=== PATIENT | female | born 1930 | race Caucasian/White ===

== ENCOUNTER → 2016-07-02 | Outpatient (CLI) | payer MEDICARE, BC ==
[~2016-07-02] MED LIST: ALEVE LIQCAPS; AMARYL; ANTIVERT 25MG25 MG PO; ATENOLOL25 MG PO; COZAAR100 MG PO; FLONASE NASAL S16 GM NS; FORTAMET500 MG PO; GLUCOPHAGE XR500 M1 PO; HCTZ; MAG-OX 400400 MG/TAB PO; MEVACOR20 MG PO; MOMETASONE FURO30 M1 TP; MOTRIN 800800 MG/TAB PO; MULTI VITAMINS1 TAB PO; MYLICON 8080 MG/TAB. PO; NORCO 325 MG-51 TAB PO; NORVASC2.5 MG PO; PRILOSEC 20MG20 MG PO; TRIANEX0.05% TOP; VITAMIN D32000 IU PO; ZOFRAN 4MG T4 MG/TAB PO; [UNRECOGNIZED DRUG - OTHER]
[2016-07-02 17:41] LABS: BASO % 0.4 % (0.0-2.0); EOS # 0.2 (0.0-0.7); EOS % 3.1 % (0-4.0); GRAN # 3.1 (1.4-6.5); GRAN % 64.8 % (42.2-75.2); LYMPH # 1.1 (1.2-3.4); LYMPH % 22.2 % (20.0-51.0); MEAN CELL VOLUME 87 fl (80.0-100.0); MEAN CORPUSCULAR HGB CONC 35 g/dl (33.0-37.0); MEAN PLATELET VOLUME 11.3 fl (7.4-10.4); MONO # 0.4 (0.1-0.6); MONO % 9.1 % (1.7-9.3); PLATELET COUNT 186 K/mm3 (130-400); RED BLOOD COUNT 3.63 M/mm3 (4.10-5.30); WHITE BLOOD COUNT 4.8 K/mm3 (4.8-10.8)
[2016-07-02 17:43] LABS: HEMATOCRIT 31.6 % (37.0-47.0); HEMOGLOBIN 10.9 g/dl (12.5-16.0); MEAN CORPUSCULAR HEMOGLOBIN 30 pg (27.0-31.0)
[2016-07-02 17:47] LABS: CALCIUM 9.3 mg/dL (8.4-10.2); CREATININE, serum 1.16 mg/dL (0.52-1.25); MAGNESIUM 1.6 mg/dL (1.6-2.3); POTASSIUM 4.9 mmol/L (3.4-5.0)
== END ==
LOC: ZCOL.LAB 17:20
PROVIDERS: Nurse Practitioner Primary Care
DX: E87.1 Hypo-osmolality and hyponatremia (principal); N39.0 Urinary tract infection, site not specified; R53.83 Other fatigue; E83.42 Hypomagnesemia

== ENCOUNTER → 2016-07-02 | Outpatient (CLI) | payer MEDICARE, BC | LOC: ZCOL.LAB 16:44 | DX: Z53.9 Procedure and treatment not carried out, unspecified reason (principal) ==

== ENCOUNTER → 2016-07-08 | Outpatient (CLI) | payer MEDICARE, BC ==
[2016-07-08 17:31] LABS: CALCIUM 9.3 mg/dL (8.4-10.2); CREATININE, serum 1.03 mg/dL (0.52-1.25); POTASSIUM 5.1 mmol/L (3.4-5.0)
== END ==
LOC: ZCOL.LAB 17:28
PROVIDERS: Nurse Practitioner Primary Care
DX: Z02.89 Encounter for other administrative examinations (principal)

== ENCOUNTER → 2017-04-25 | Outpatient (CLI) | payer MEDICARE, BC ==
[2017-04-25 15:30] LABS: BASO % 0.5 % (0.0-2.0); EOS % 0.3 % (0-4.0); GRAN % 84.3 % (42.2-75.2); HEMATOCRIT 37.9 % (37.0-47.0); HEMOGLOBIN 12.3 g/dl (12.5-16.0); LYMPH # 0.6 (1.2-3.4); LYMPH % 9.3 % (20.0-51.0); MEAN CELL VOLUME 88 fl (80.0-100.0); MEAN CORPUSCULAR HEMOGLOBIN 29 pg (27.0-31.0); MEAN CORPUSCULAR HGB CONC 33 g/dl (33.0-37.0); MEAN PLATELET VOLUME 11.7 fl (7.4-10.4); MONO # 0.3 (0.1-0.6); MONO % 5.3 % (1.7-9.3); PLATELET COUNT 179 K/mm3 (130-400); RED BLOOD COUNT 4.29 M/mm3 (4.10-5.30)
[2017-04-25 15:37] LABS: CALCIUM 9.8 mg/dL (8.4-10.2); CREATININE, serum 1.17 mg/dL (0.52-1.25); POTASSIUM 4.9 mmol/L (3.4-5.0)
== END ==
LOC: ZCOL.LAB 15:25
PROVIDERS: Nurse Practitioner Family
DX: E87.1 Hypo-osmolality and hyponatremia (principal); H81.10 Benign paroxysmal vertigo, unspecified ear; E11.59 Type 2 diabetes mellitus with other circulatory complications; R11.0 Nausea

== ENCOUNTER 2019-12-29 17:54 | Observation (INO) | payer MEDICARE, BC ==
[~2019-12-29] VITALS: Ht 157.5 cm; Wt 59.3 kg
[~2019-12-29 17:54] MED LIST changes: +MASON NATURAL2000 IU PO; -VITAMIN D32000 IU PO
[2019-12-29 18:22] LABS: BASO % 0.6 % (0.0-2.0); EOS # 0.1 (0.0-0.7); EOS % 1.3 % (0-4.0); GRAN # 4.1 (1.4-6.5); GRAN % 63.7 % (42.2-75.2); HEMOGLOBIN 12.2 g/dl (12.5-16.0); LYMPH # 1.5 (1.2-3.4); LYMPH % 23.7 % (20.0-51.0); MEAN CELL VOLUME 88 fl (80.0-100.0); MEAN CORPUSCULAR HEMOGLOBIN 29 pg (27.0-31.0); MEAN CORPUSCULAR HGB CONC 33 g/dl (33.0-37.0); MONO # 0.6 (0.1-0.6); MONO % 9.6 % (1.7-9.3); PLATELET COUNT 212 K/mm3 (130-400); RED BLOOD COUNT 4.15 M/mm3 (4.10-5.30); REDCELL DISTRIBUTION WIDTH-CV 13.2 % (11.5-14.5)
[2019-12-29 18:23] LABS: HEMATOCRIT 36.7 % (37.0-47.0)
[2019-12-29 18:28] LABS: INR 0.9 (0.8-3.0); PROTHROMBIN TIME 10.5 SECONDS (9.7-12.8)
[2019-12-29 18:36] LABS: ALANINE AMINOTRANSFERASE 16 U/L (4-34); ALBUMIN 4.5 gm/dL (3.5-5.0); ALKALINE PHOSPHATASE 109 U/L (50-136); ANION GAP 11 mmol/L (7-16); AST,SGOT 25 U/L (15-37); BILIRUBIN,TOTAL 0.5 mg/dL (0.0-1.0); BLOOD UREA NITROGEN 20 mg/dL (7-17); CALCIUM 9.4 mg/dL (8.4-10.2); CARBON DIOXIDE 22 mmol/L (22-30); CHLORIDE 96 mmol/L (98-107); CREATININE, serum 1.27 (0.52-1.25); GLUCOSE 313 mg/dL (74-106); LIPASE 92 U/L (23-300); POTASSIUM 4.3 mmol/L (3.4-5.0); SODIUM 129 mmol/L (137-145); TOTAL PROTEIN 7.5 gm/dL (6.4-8.2)
[2019-12-29 18:48] LABS: TROPONIN-I < 0.012 ng/mL (0.000-0.035)
[2019-12-29] MEDS ORDERED: AMARYL 2MG T2 MG/TAB PO (19:52)
[2019-12-29] MEDS ORDERED: COZAAR100 MG PO (19:53)
[2019-12-29] MEDS ORDERED: MEVACOR 20M20 MG/TAB PO (19:53)
[2019-12-29] MEDS ORDERED: TYLENOL 325MG325 MG PO (21:04)
[2019-12-29] MEDS ORDERED: BIOFREEZE 0.2%-1 GE1 TOP (21:04)
[2019-12-29] MEDS ORDERED: MASON NATURAL2000 IU PO (21:04)
[2019-12-29] MEDS ORDERED: PRILOSEC 20MG20 MG PO (21:05)
--- NOTE | 2019-12-29 22:00 | NUR ---
Patient to medical room 311 at this time with ED RN Ronald. Patient is alert and oriented and is able to ambulate from stretcher to bed. She has no complaints of pain or chest discomfort at this time; No edema is noted. She is on RA with no signs of increased WOB. Lung sounds are clear and heart rate is normal with a rhythm. BP is elevated; will administer scheduled home med Losartan and monitor.
[2019-12-29 22:29] VITALS: BP 144/116; PULSE 58; TEMP 97.4
[2019-12-29 23:37] VITALS: BP 138/59; PULSE 60; TEMP 97.5
[2019-12-30 04:00] VITALS: BP 130/65; PULSE 62; TEMP 97.9
--- NOTE | 2019-12-30 06:15 | NUR ---
Patient has episode of emesis, 20 ml of light brown liquid, at this time. Patient states she started having substernal chest pressure, as if she had to burp, prior to this episode of vomiting. Dr. Hansen notified; 4 mg Zofran and EKG ordered. Zofran and 2mg morphine administered. HR 130's while patient was vomiting but quickly returned to 70-80 afterwards. BP 159/76. Afebrile. Will continue to monitor.
[2019-12-30 06:42] LABS: BASO % 0.5 % (0.0-2.0); EOS # 0.1 (0.0-0.7); EOS % 2.2 % (0-4.0); GRAN # 2.6 (1.4-6.5); GRAN % 64.4 % (42.2-75.2); HEMOGLOBIN 11.3 g/dl (12.5-16.0); LYMPH # 0.9 (1.2-3.4); LYMPH % 21.7 % (20.0-51.0); MEAN CELL VOLUME 89 fl (80.0-100.0); MEAN CORPUSCULAR HEMOGLOBIN 29 pg (27.0-31.0); MEAN CORPUSCULAR HGB CONC 33 g/dl (33.0-37.0); MEAN PLATELET VOLUME 11.1 fl (7.4-10.4); MONO # 0.4 (0.1-0.6); MONO % 10.2 % (1.7-9.3); PLATELET COUNT 175 K/mm3 (130-400); RED BLOOD COUNT 3.91 M/mm3 (4.10-5.30); REDCELL DISTRIBUTION WIDTH-CV 13.2 % (11.5-14.5)
[2019-12-30 06:51] LABS: ALBUMIN 3.5 gm/dL (3.5-5.0); BILIRUBIN,TOTAL 0.5 mg/dL (0.0-1.0); CALCIUM 8.9 mg/dL (8.4-10.2); CHOLESTEROL RISK RATIO 3.4; CREATININE, serum 1.14 (0.52-1.25); POTASSIUM 4.7 mmol/L (3.4-5.0); TOTAL PROTEIN 6.2 gm/dL (6.4-8.2)
[2019-12-30 06:54] LABS: TROPONIN-I 0.017 ng/mL (0.000-0.035)
[2019-12-30 06:57] LABS: HEMATOCRIT 34.6 % (37.0-47.0)
[2019-12-30 07:19] VITALS: BP 118/69; BP 136/58; PULSE 66; TEMP 97.8
[2019-12-30 12:11] VITALS: BP 166/59; PULSE 70; TEMP 97.9
--- NOTE | 2019-12-30 13:41 | NUR ---
Sw met with patient at her bedside. Patient currently resides in [facility] alone, with her son Darrin [phone] as her care support and her EMR. Patient reports she is currently Independent with ADL's and that she does have a DPOA. Patient reports that she currently uses a cane as needed, and that her PCP is Dr. Carson, with an upcoming appointment in a month. Patient reports that she gets her medication from [facility] with no concerns. Patient reports that her in June 2019 and that she continues to work at [employer]. Patient declined [facility] at this time. SW will continue to follow.
--- NOTE | 2019-12-30 15:05 | NUR ---
While assessing the patient, this student nurse asked the patient how she was feeling and discussed with the patient her recent stressors. The patient became very tearful over her husbands passing and her sons recent medical issues. 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 At approximately 1430 the patient rang for assistance and this student nurse went and checked on her. The patient expressed that she was feeling nauseated and like she could vomit. This student nurse administered PRN Zofran. When this student nurse went back to reassess the patient, the patient was sleeping and awoke when this student nurse entered the room. The patient stated that she was starting to feel better and just wnated to rest.
[2019-12-30 15:50] VITALS: BP 156/56; PULSE 82; TEMP 97.5
[2019-12-30 19:29] VITALS: BP 157/81; PULSE 68; TEMP 97.7
--- NOTE | 2019-12-30 22:00 | NUR ---
Pt resting in bed, assessment completed. meds given per MAY. lung sounds are clear. heart sounds are regular and paced. pt denies pain, reporting chest pressure. assisted pt to the bathroom, gait is steady. pt denies nausea/vomiting at this time. no other other needs at this time.
[2019-12-30 23:55] VITALS: BP 132/44; PULSE 58; TEMP 97.5
[2019-12-31 03:30] VITALS: BP 146/69; PULSE 70; TEMP 97.6
--- NOTE | 2019-12-31 05:29 | NUR ---
pt sleeping in bed, called for assistance to the bathroom throughout the night. pt recieved xanax at beginning of shift, chest pressure still present but mild. blood pressure has been within normal limits. will continue to monitor.
--- NOTE | 2019-12-31 07:05 | NUR ---
Report with JOO Quinones. Pt resting in bed, A&O x 4, denies pain or needs at this time. IVF's infusing per orders. Call light in reach.
[2019-12-31 07:12] VITALS: BP 153/71; PULSE 79; TEMP 97.7
--- NOTE | 2019-12-31 08:45 | NUR ---
Assessment complete. Pt sitting up in bed, A&O x 4. Physical assessment unremarkable. Pt denies pain or needs at this time. IVF's infusing per orders through left AC site without s/s of complications. POC reviewed with pt regarding possible testing requiring NPO status. Pt verbalizes understanding. Call light in reach.
--- NOTE | 2019-12-31 10:10 | NUR ---
SW attended clinical rounds. Cardiology was consulted. SW then followed up with the patient to review d/c plan. The patient confirms that she lives alone in [place]. She states that her son, Darrin, lives in [place]. SW discussed home health services and their benefits. The patient states that she has great neighbor support and that they help her with anything she may need. She states that she sets up her own meds and checks her blood pressure. She states that she is not interested in any home health at this time. SW to continue to follow as needed.
[2019-12-31 12:09] VITALS: BP 161/56; PULSE 77; TEMP 98.6
[2019-12-31] MEDS ORDERED: NITROSTAT0.4 MG/TAB SL (12:20)
[2019-12-31] MEDS ORDERED: ASPIRIN E.C. 8181 MG PO (12:21)
[2019-12-31] MEDS ORDERED: IMDUR 30MG30 MG/TAB PO (12:21)
--- NOTE | 2019-12-31 13:38 | NUR ---
Initial visit; Patient thanked Senior System Operator for looking in on her and offering God's blessings.
--- NOTE | 2019-12-31 14:26 | NUR ---
Discharge instructions reviewed with pt regarding new medications and follow-up appointments. Pt verbalizes understanding, calling for transportation home. Call light in reach.
--- NOTE | 2019-12-31 15:21 | NUR ---
Pt discharged home, escorted out of facility via WC accompanied by MARKETING TRAFFIC MANAGER.
== END 2019-12-31 15:21 | disposition home or self-care (01) ==
LOC: COL.ER 17:54 → MEDICAL 19:32
PROVIDERS: Emergency Medicine; Nurse Practitioner Family; ADMIT Internal Medicine Pulmonary Disease
DX: I25.110 Atherosclerotic heart disease of native coronary artery with unstable angina pectoris (principal); R07.9 Chest pain, unspecified; N17.9 Acute kidney failure, unspecified; I10 Essential (primary) hypertension; E78.5 Hyperlipidemia, unspecified; E11.9 Type 2 diabetes mellitus without complications; E87.1 Hypo-osmolality and hyponatremia; I08.0 Rheumatic disorders of both mitral and aortic valves; I42.0 Dilated cardiomyopathy; I08.3 Combined rheumatic disorders of mitral, aortic and tricuspid valves; D64.9 Anemia, unspecified; F41.9 Anxiety disorder, unspecified; G89.29 Other chronic pain; K21.9 Gastro-esophageal reflux disease without esophagitis; F32.9 Major depressive disorder, single episode, unspecified; M48.00 Spinal stenosis, site unspecified; Z88.8 Allergy status to other drugs, medicaments and biological substances; Z82.3 Family history of stroke; Z90.710 Acquired absence of both cervix and uterus; Z79.899 Other long term (current) drug therapy; Z85.72 Personal history of non-Hodgkin lymphomas
CPT/HCPCS: 99233-AI; C9113; G0378; J1815; J2060; J2270; J2405; J7030

== ENCOUNTER → 2020-05-07 | Outpatient (CLI) | payer MEDICARE, BC ==
[~2020-05-07] MED LIST changes: +AMARYL 2MG T2 MG/TAB PO; +ASPIRIN E.C. 8181 MG PO; +BIOFREEZE 0.2%-1 GE1 TOP; +IMDUR 30MG30 MG/TAB PO; +MEVACOR 20M20 MG/TAB PO; +NITROSTAT0.4 MG/TAB SL; +TYLENOL 325MG325 MG PO
== END ==
LOC: MHCPAIN 14:42
DX: M47.816 Spondylosis without myelopathy or radiculopathy, lumbar region (principal); M54.17 Radiculopathy, lumbosacral region; M48.062 Spinal stenosis, lumbar region with neurogenic claudication; E11.9 Type 2 diabetes mellitus without complications; G89.29 Other chronic pain
CPT/HCPCS: G0463

== ENCOUNTER → 2020-05-12 | Outpatient (CLI) | payer MEDICARE, BC | LOC: MHCPAIN 13:36 | DX: M47.817 Spondylosis without myelopathy or radiculopathy, lumbosacral region (principal); M54.16 Radiculopathy, lumbar region | CPT/HCPCS: J1100; Q9967 ==

== ENCOUNTER → 2020-05-26 | Outpatient (CLI) | payer MEDICARE, BC ==
[~2020-05-26] MED LIST changes: +ASPIRIN 81M81 MG/TA2 PO; +ELIQUIS 2.5 PO; +ELIQUIS 5MG PO; +JANUVIA50 MG PO; +LANOXIN 0.120.125 MG PO; +LASIX 20MG TABL20 MG PO; +NORVASC 5MG5 MG/TAB PO
== END ==
LOC: MHCPAIN 13:42
DX: M79.2 Neuralgia and neuritis, unspecified (principal); G89.29 Other chronic pain; M47.816 Spondylosis without myelopathy or radiculopathy, lumbar region; M54.5 Low back pain
CPT/HCPCS: G0260; G0463; J1040; Q9967

== ENCOUNTER 2020-05-27 14:01 | Emergency (ER) | payer MEDICARE, BC ==
[~2020-05-27 14:01] MED LIST changes: -ASPIRIN 81M81 MG/TA2 PO; -ELIQUIS 2.5 PO; -ELIQUIS 5MG PO; -JANUVIA50 MG PO; -LANOXIN 0.120.125 MG PO; -LASIX 20MG TABL20 MG PO; -NORVASC 5MG5 MG/TAB PO
[2020-05-27 14:06] VITALS: TEMP 97.5
[2020-05-27 14:26] LABS: BASO % 0.4 % (0.0-2.0); EOS % 0.3 % (0-4.0); GRAN # 8.1 (1.4-6.5); GRAN % 80.8 % (42.2-75.2); HEMOGLOBIN 12.1 g/dl (12.5-16.0); LYMPH # 1.1 (1.2-3.4); LYMPH % 11.2 % (20.0-51.0); MEAN CELL VOLUME 90 fl (80.0-100.0); MEAN CORPUSCULAR HEMOGLOBIN 29 pg (27.0-31.0); MEAN CORPUSCULAR HGB CONC 33 g/dl (33.0-37.0); MEAN PLATELET VOLUME 10.7 fl (7.4-10.4); MONO # 0.7 (0.1-0.6); MONO % 6.6 % (1.7-9.3); PLATELET COUNT 205 K/mm3 (130-400); RED BLOOD COUNT 4.13 M/mm3 (4.10-5.30); REDCELL DISTRIBUTION WIDTH-CV 13.5 % (11.5-14.5)
[2020-05-27 14:31] LABS: ALANINE AMINOTRANSFERASE 17 U/L (4-34); ALBUMIN 4.5 gm/dL (3.5-5.0); ALKALINE PHOSPHATASE 96 U/L (50-136); ANION GAP 11 mmol/L (7-16); AST,SGOT 23 U/L (15-37); BILIRUBIN,TOTAL 0.5 mg/dL (0.0-1.0); BLOOD UREA NITROGEN 21 mg/dL (7-17); CALCIUM 9.7 mg/dL (8.4-10.2); CARBON DIOXIDE 21 mmol/L (22-30); CHLORIDE 105 mmol/L (98-107); CREATININE, serum 1.32 (0.52-1.25); GLUCOSE 227 mg/dL (74-106); POTASSIUM 4.2 mmol/L (3.4-5.0); SODIUM 137 mmol/L (137-145); TOTAL PROTEIN 7.6 gm/dL (6.4-8.2)
[2020-05-27 14:36] LABS: PROTHROMBIN TIME 10.9 SECONDS (9.7-12.8)
[2020-05-27 14:39] LABS: PARTIAL THROMBOPLASTIN TIME 26.8 SECONDS (26.0-37.0)
[2020-05-27 14:44] LABS: TROPONIN-I < 0.012 ng/mL (0.000-0.035)
[2020-05-27] MEDS ORDERED: ELIQUIS 5MG PO ×2 (15:13)
[2020-05-27] MEDS ORDERED: ELIQUIS 2.5 PO (15:21)
[2020-05-27 15:40] VITALS: BP 139/75; PULSE 76
[2021-01-12] MEDS ORDERED: NORVASC 5MG5 MG/TAB PO (00:29)
[2021-01-13] MEDS ORDERED: ASPIRIN 81M81 MG/TA2 PO (12:48)
[2021-01-13] MEDS ORDERED: ANTIVERT 25MG25 MG PO (12:48)
[2021-01-20] MEDS ORDERED: ELIQUIS 2.5 PO (17:05)
[2021-01-21] MEDS ORDERED: LANOXIN 0.120.125 MG PO (14:29)
[2021-01-21] MEDS ORDERED: COZAAR100 MG PO (14:32)
== END 2020-05-27 15:40 | disposition home or self-care (01) ==
LOC: COL.ER 14:01
PROVIDERS: Family Medicine
DX: I48.91 Unspecified atrial fibrillation (principal); M48.00 Spinal stenosis, site unspecified; Z88.8 Allergy status to other drugs, medicaments and biological substances; Z79.82 Long term (current) use of aspirin; Z79.84 Long term (current) use of oral hypoglycemic drugs
CPT/HCPCS: J7040

== ENCOUNTER 2020-06-17 18:35 | Observation (INO) | payer MEDICARE, BC ==
[~2020-06-17] VITALS: Ht 157.5 cm; Wt 61.6 kg
[~2020-06-17 18:35] MED LIST changes: +ELIQUIS 2.5 PO; +ELIQUIS 5MG PO
[2020-06-17 19:14] LABS: BASO % 0.5 % (0.0-2.0); EOS # 0.2 (0.0-0.7); EOS % 2.9 % (0-4.0); GRAN # 3.4 (1.4-6.5); GRAN % 59.5 % (42.2-75.2); HEMOGLOBIN 11.6 g/dl (12.5-16.0); LYMPH # 1.3 (1.2-3.4); LYMPH % 22.1 % (20.0-51.0); MEAN CELL VOLUME 87 fl (80.0-100.0); MEAN CORPUSCULAR HEMOGLOBIN 29 pg (27.0-31.0); MEAN CORPUSCULAR HGB CONC 33 g/dl (33.0-37.0); MEAN PLATELET VOLUME 11.2 fl (7.4-10.4); MONO # 0.8 (0.1-0.6); MONO % 14.3 % (1.7-9.3); PLATELET COUNT 177 K/mm3 (130-400); RED BLOOD COUNT 3.97 M/mm3 (4.10-5.30); REDCELL DISTRIBUTION WIDTH-CV 13.4 % (11.5-14.5)
[2020-06-17 19:18] LABS: HEMATOCRIT 34.7 % (37.0-47.0)
[2020-06-17 19:24] LABS: ALANINE AMINOTRANSFERASE 14 U/L (4-34); ALBUMIN 4.1 gm/dL (3.5-5.0); ALKALINE PHOSPHATASE 97 U/L (50-136); ANION GAP 10 mmol/L (7-16); AST,SGOT 21 U/L (15-37); BILIRUBIN,TOTAL 0.3 mg/dL (0.0-1.0); BLOOD UREA NITROGEN 24 mg/dL (7-17); CALCIUM 9.3 mg/dL (8.4-10.2); CARBON DIOXIDE 20 mmol/L (22-30); CHLORIDE 103 mmol/L (98-107); CREATINE KINASE 59 U/L (30-135); CREATININE, serum 1.49 (0.52-1.25); GLUCOSE 184 mg/dL (74-106); LIPASE 81 U/L (23-300); POTASSIUM 4.5 mmol/L (3.4-5.0); SODIUM 132 mmol/L (137-145); TOTAL PROTEIN 7.3 gm/dL (6.4-8.2)
[2020-06-17 19:36] LABS: TROPONIN-I < 0.012 ng/mL (0.000-0.035)
[2020-06-17 19:46] LABS: PROTHROMBIN TIME 11.7 SECONDS (9.7-12.8)
[2020-06-17] MEDS ORDERED: JANUVIA50 MG PO (22:05)
[2020-06-17 22:21] LABS: CHOLESTEROL 171 mg/dL (120-200); CHOLESTEROL RISK RATIO 3.1; HDL CHOLESTEROL 54 mg/dL; LDL CHOLESTEROL 91 mg/dL; TRIGLYCERIDE 130 mg/dL
[2020-06-17 23:20] VITALS: BP 134/84; PULSE 77; TEMP 97.6
--- NOTE | 2020-06-18 00:04 | NUR ---
Patient transferred to medical floor room 310 from ER around 9pm. Patient pleasant, A/O x4. Patient states her chest pain is feeling better since she came to the hospital. Patient denies N/V, headache, dizziness, SOB or dyspnea. Patient currently on room. No acute distress noted. VS stable. Patient reports feeling cold and hungry. Sandwitch and warm water provided. Patient denies need for pain medicine. Oriented patient to the room. Call light within reach. Patient denies any needs at this time.
[2020-06-18 03:12] VITALS: BP 117/41; PULSE 66; TEMP 97.9
--- NOTE | 2020-06-18 06:02 | NUR ---
Noticed right AC IV site infiltrated around 5 am. Elevated right forearm on the pillow and applied icepack. 22G IV started to left hand by warehouse team member Kentrell. Patient denies chest pain this morning. Walking to the bathroom with steady gait. Stand-by assist provided. No acute distress noted. NPO status maintained from midnight per LORENA Canseco. Call light within reach. Patient denies any needs at this time.
[2020-06-18 06:20] LABS: BASO % 0.6 % (0.0-2.0); EOS # 0.2 (0.0-0.7); EOS % 4.7 % (0-4.0); GRAN % 63.6 % (42.2-75.2); HEMOGLOBIN 10.7 g/dl (12.5-16.0); LYMPH # 0.9 (1.2-3.4); LYMPH % 18.3 % (20.0-51.0); MEAN CELL VOLUME 91 fl (80.0-100.0); MEAN CORPUSCULAR HEMOGLOBIN 29 pg (27.0-31.0); MEAN CORPUSCULAR HGB CONC 32 g/dl (33.0-37.0); MEAN PLATELET VOLUME 11.1 fl (7.4-10.4); MONO # 0.6 (0.1-0.6); MONO % 11.7 % (1.7-9.3); PLATELET COUNT 155 K/mm3 (130-400); REDCELL DISTRIBUTION WIDTH-CV 13.5 % (11.5-14.5)
[2020-06-18 06:22] LABS: HEMATOCRIT 33.5 % (37.0-47.0)
[2020-06-18 06:27] LABS: ANION GAP 7 mmol/L (7-16); BLOOD UREA NITROGEN 22 mg/dL (7-17); CALCIUM 8.9 mg/dL (8.4-10.2); CARBON DIOXIDE 23 mmol/L (22-30); CHLORIDE 105 mmol/L (98-107); CREATININE, serum 1.44 (0.52-1.25); GLUCOSE 133 mg/dL (74-106); POTASSIUM 4.5 mmol/L (3.4-5.0); SODIUM 135 mmol/L (137-145)
[2020-06-18 06:30] VITALS: BP 124/44; PULSE 67; TEMP 97.6
[2020-06-18 06:38] LABS: TROPONIN-I < 0.012 ng/mL (0.000-0.035)
--- NOTE | 2020-06-18 07:30 | NUR ---
Patient resting in bed. Shift assessment complete. Tele on HR normal S1/S2. IV site is patent NS 75cc/hr. Pt is NPO @ this time. Steady gait. No c/o of pain.
--- NOTE | 2020-06-18 10:41 | NUR ---
Initial visit; Patient thanked Muck Farmer for looking in on her, visiting and offering God's blessings and keeping her in Muck Farmer's prayers.
[2020-06-18 11:00] VITALS: BP 122/78; PULSE 74; TEMP 97.8
--- NOTE | 2020-06-18 15:05 | NUR ---
Medical Imaging Technician attended clinical rounds with the team then followed up with patient to discuss discharge planning. SW requested PT/OT orders from Hospitalist. Patient lives alone in [place] and advised that her in June of 2019. Patient sees Dr. Espinosa for primary care and obtains medications from [facility] with no difficulties. Patient has a cane that she uses when she's out in the community but reports that she uses no DME at home. Patient reports independence with ADLS. Patient states she has DPOA-HC completed and that Dr. Espinosa's office should have a copy. Patient reports her son, Darrin (ph#[phone]) lives in [place] and they run the [employer] together. SW contacted Dr. Espinosa's office to request DPOA-HC. SW recieved a fax with patient's DPOA-HC which designates her late , then her two sons, Darrin and Edil. Patient states she has used [facility] in the past, but does not feel she needs HH services at this time. Patient plans to return home upon discharge.
[2020-06-18] MEDS ORDERED: LASIX 20MG TABL20 MG PO (15:08)
[2020-06-18 15:36] VITALS: BP 141/57; PULSE 68; TEMP 97.8
[2021-01-12] MEDS ORDERED: NORVASC 5MG5 MG/TAB PO (00:29)
[2021-01-13] MEDS ORDERED: ASPIRIN 81M81 MG/TA2 PO (12:48)
[2021-01-13] MEDS ORDERED: ANTIVERT 25MG25 MG PO (12:48)
[2021-01-20] MEDS ORDERED: ELIQUIS 2.5 PO (17:05)
[2021-01-21] MEDS ORDERED: LANOXIN 0.120.125 MG PO (14:29)
[2021-01-21] MEDS ORDERED: COZAAR100 MG PO (14:32)
== END 2020-06-18 17:45 | disposition home or self-care (01) ==
LOC: COL.ER 18:35 → MEDICAL 20:12
PROVIDERS: Emergency Medicine; Student in an Organized Health Care Education/Training Program; ADMIT Family Medicine
DX: R07.89 Other chest pain (principal); G89.29 Other chronic pain; I48.91 Unspecified atrial fibrillation; E11.22 Type 2 diabetes mellitus with diabetic chronic kidney disease; E78.5 Hyperlipidemia, unspecified; E87.1 Hypo-osmolality and hyponatremia; M48.00 Spinal stenosis, site unspecified; I13.10 Hypertensive heart and chronic kidney disease without heart failure, with stage 1 through stage 4 chronic kidney disease, or unspecified chronic kidney disease; N18.30 Chronic kidney disease, stage 3 unspecified; K21.9 Gastro-esophageal reflux disease without esophagitis; D64.9 Anemia, unspecified; F32.9 Major depressive disorder, single episode, unspecified; F41.9 Anxiety disorder, unspecified; Z79.82 Long term (current) use of aspirin; Z79.899 Other long term (current) drug therapy; Z85.72 Personal history of non-Hodgkin lymphomas; Z79.84 Long term (current) use of oral hypoglycemic drugs; Z79.01 Long term (current) use of anticoagulants; Z90.710 Acquired absence of both cervix and uterus; Z88.8 Allergy status to other drugs, medicaments and biological substances; Z86.79 Personal history of other diseases of the circulatory system
CPT/HCPCS: 99223-AI; G0378; J2060; J2405; J7030

== ENCOUNTER → 2020-07-01 | Outpatient (CLI) | payer MEDICARE, BC ==
[~2020-07-01] MED LIST changes: +ASPIRIN 81M81 MG/TA2 PO; +JANUVIA50 MG PO; +LANOXIN 0.120.125 MG PO; +LASIX 20MG TABL20 MG PO; +NORVASC 5MG5 MG/TAB PO
== END ==
LOC: MHCPAIN 13:59
DX: M47.816 Spondylosis without myelopathy or radiculopathy, lumbar region (principal); M53.3 Sacrococcygeal disorders, not elsewhere classified; M48.062 Spinal stenosis, lumbar region with neurogenic claudication; G89.29 Other chronic pain
CPT/HCPCS: G0463

== ENCOUNTER → 2020-07-01 | Outpatient (CLI) | payer MEDICARE, BC | LOC: COL.RAD 15:07 | DX: M51.16 Intervertebral disc disorders with radiculopathy, lumbar region (principal); M43.16 Spondylolisthesis, lumbar region ==